=== PATIENT | male | born 1955 | race Native Hawaiian/Other Pacific Islander ===

== ENCOUNTER 2017-01-13 13:57 | Outpatient (CLI) | payer OTHER | END 2017-01-13 15:00 | disposition home or self-care (01) | LOC: EDSEX 13:57 → RESP 13:57 | DX: R06.02 Shortness of breath (principal) | CPT/HCPCS: 94664 ==

== ENCOUNTER 2020-05-26 17:24 | Emergency (ER) | payer OTHER ==
[~2020-05-26] VITALS: Ht 180.3 cm; Wt 77.1 kg
[2020-05-26 17:24] VITALS: TEMP 98.3
[2020-05-26 18:16] LABS: PLATELET COUNT 233 K/uL (142-355)
[2020-05-26 18:50] LABS: POTASSIUM 3.4 mmol/L (3.6-5.2)
[2020-05-26 22:16] VITALS: BP 114/64
== END 2020-05-26 22:17 | disposition still patient (30) ==
LOC: ED 17:24
PROVIDERS: Family Medicine
DX: F10.129 Alcohol abuse with intoxication, unspecified (principal); Y90.8 Blood alcohol level of 240 mg/100 ml or more; S80.01XA Contusion of right knee, initial encounter; S00.03XA Contusion of scalp, initial encounter; S00.83XA Contusion of other part of head, initial encounter; S90.01XA Contusion of right ankle, initial encounter; Z91.81 History of falling; W18.39XA Other fall on same level, initial encounter; Y92.89 Other specified places as the place of occurrence of the external cause
CPT/HCPCS: 80053; 80320; 82150; 83690; 85027; 96360; 99284

== ENCOUNTER 2020-07-30 20:13 | Emergency (ER) | payer OTHER ==
[2020-07-30 20:53] LABS: PLATELET COUNT 202 K/uL (142-355)
[2020-07-30 21:02] LABS: POTASSIUM 4.3 mmol/L (3.6-5.2)
[2020-07-30 21:11] LABS: PARTIAL THROMBOPLASTIN TIME 26.3 SECONDS (24.5-33.6)
[2020-07-30] MEDS ORDERED: FLUOXETINE40 MG PO (22:55)
[2020-07-30] MEDS ORDERED: CLOPIDOGREL75 MG PO (22:56)
[2020-07-30] MEDS ORDERED: LANS30CA PO (22:57)
[2020-07-30] MEDS ORDERED: K-TABS10 MEQ PO (22:58)
[2020-07-30] MEDS ORDERED: MOBIC7.5 M1 PO (22:59)
[2020-07-30] MEDS ORDERED: KP FOLIC ACID1 MG PO (23:00)
[2020-07-30] MEDS ORDERED: THIA100T8 PO (23:00)
[2020-07-30] MEDS ORDERED: TRAZODONE HYDR150 MG PO (23:02)
[2020-07-30] MEDS ORDERED: HYDROCO/APAP1 TA4 PO (23:04)
[2020-07-31 02:05] VITALS: BP 121/71; TEMP 98.7
== END 2020-07-31 02:05 | disposition home or self-care (01) ==
LOC: ED 20:13
PROVIDERS: Emergency Medicine
DX: R53.1 Weakness (principal); F32.89 Other specified depressive episodes; F10.129 Alcohol abuse with intoxication, unspecified; Z03.818 Encounter for observation for suspected exposure to other biological agents ruled out; W18.39XA Other fall on same level, initial encounter; Y92.098 Other place in other non-institutional residence as the place of occurrence of the external cause
CPT/HCPCS: 36415; 80053; 80307; 80320; 80329; 81000; 82150; 82550; 83690; 84484; 85008; 85027; 85610; 85730; 87635; 93005; 96365; 99284; J3411; J3475; J3490; U0003

== ENCOUNTER 2020-09-08 22:11 | Emergency (ER) | payer OTHER ==
[~2020-09-08] VITALS: Ht 182.9 cm; Wt 68.0 kg
[~2020-09-08 22:11] MED LIST: CLOPIDOGREL75 MG PO; FLUOXETINE40 MG PO; HYDROCO/APAP1 TA4 PO; K-TABS10 MEQ PO; KP FOLIC ACID1 MG PO; LANS30CA PO; MOBIC7.5 M1 PO; THIA100T8 PO; TRAZODONE HYDR150 MG PO
[2020-09-08 23:01] LABS: PLATELET COUNT 164 K/uL (142-355)
[2020-09-08 23:14] LABS: POTASSIUM 3.7 mmol/L (3.6-5.2)
[2020-09-08 23:41] LABS: PARTIAL THROMBOPLASTIN TIME 27.1 SECONDS (24.5-33.6)
[2020-09-09 02:40] VITALS: BP 130/82; TEMP 98.6
== END 2020-09-09 02:40 | disposition short-term general hospital (02) ==
LOC: ED 22:11
PROVIDERS: Hospitalist
DX: I21.4 Non-ST elevation (NSTEMI) myocardial infarction (principal); R55 Syncope and collapse; S02.40FA Zygomatic fracture, left side, initial encounter for closed fracture; S02.842A Fracture of lateral orbital wall, left side, initial encounter for closed fracture; S02.40DA Maxillary fracture, left side, initial encounter for closed fracture; Z11.52 Encounter for screening for COVID-19; W18.39XA Other fall on same level, initial encounter; Y93.E1 Activity, personal bathing and showering; Y92.091 Bathroom in other non-institutional residence as the place of occurrence of the external cause
CPT/HCPCS: 36415; 80053; 80320; 82550; 82553; 83880; 84484; 85027; 85610; 85730; 87635; 93005; 96360; 96361; 96365; 96375; 99285; J0696; J2405; U0003

== ENCOUNTER 2020-09-23 14:30 | Inpatient (IN) | payer OTHER ==
[2020-10-04 20:00] VITALS: BP 95/51; TEMP 98.8
[2020-10-05 20:00] VITALS: BP 105/51; TEMP 98.4
[2020-10-06 08:00] VITALS: BP 99/66; TEMP 98.1
[2020-10-06 20:00] VITALS: BP 93/57; TEMP 98.7
[2020-10-07 08:00] VITALS: BP 106/67; TEMP 98.4
== END 2020-10-07 15:50 | disposition home health service (06) | DRG 281 ==
LOC: MED/SURG 14:30
PROVIDERS: ADMIT Internal Medicine; ATTEND Internal Medicine
DX: I21.4 Non-ST elevation (NSTEMI) myocardial infarction (principal); S02.85XD Fracture of orbit, unspecified, subsequent encounter for fracture with routine healing; Z91.81 History of falling; R48.8 Other symbolic dysfunctions; M62.81 Muscle weakness (generalized); Z74.1 Need for assistance with personal care; R26.2 Difficulty in walking, not elsewhere classified; R27.9 Unspecified lack of coordination; N39.0 Urinary tract infection, site not specified; B96.20 Unspecified Escherichia coli [E. coli] as the cause of diseases classified elsewhere; I10 Essential (primary) hypertension; D64.9 Anemia, unspecified; E78.5 Hyperlipidemia, unspecified
CPT/HCPCS: 81000; 87077; 87081; 87086; 87088; 87186; 87635; U0003

== ENCOUNTER 2020-10-28 10:24 | Outpatient (CLI) | payer OTHER ==
[2020-10-28 10:51] LABS: PLATELET COUNT 286 K/uL (142-355)
[2020-10-28 10:59] LABS: POTASSIUM 4.2 mmol/L (3.6-5.2)
== END 2020-10-28 23:31 | disposition home or self-care (01) ==
LOC: LAB 10:24
PROVIDERS: ATTEND Internal Medicine
DX: I25.10 Atherosclerotic heart disease of native coronary artery without angina pectoris (principal); E11.9 Type 2 diabetes mellitus without complications; R30.0 Dysuria; J44.9 Chronic obstructive pulmonary disease, unspecified; E53.8 Deficiency of other specified B group vitamins
CPT/HCPCS: 80053; 81000; 82607; 82746; 84425; 85027

== ENCOUNTER 2020-12-03 15:42 | Outpatient (CLI) | payer OTHER ==
[2020-12-03 16:05] LABS: POTASSIUM 4.3 mmol/L (3.6-5.2)
== END 2020-12-03 22:19 | disposition home or self-care (01) ==
LOC: LAB 15:42
PROVIDERS: ATTEND Internal Medicine Cardiovascular Disease
DX: Z79.899 Other long term (current) drug therapy (principal)
CPT/HCPCS: 80048

== ENCOUNTER 2020-12-08 13:43 | Outpatient (CLI) | payer OTHER | END 2020-12-08 20:42 | disposition home or self-care (01) | LOC: RESP 13:43 | PROVIDERS: ATTEND Internal Medicine Cardiovascular Disease | DX: I10 Essential (primary) hypertension (principal) ==

== ENCOUNTER 2021-01-05 11:56 | Outpatient (CLI) | payer OTHER ==
[2021-01-05 12:09] LABS: PLATELET COUNT 218 K/uL (142-355)
[2021-01-05 12:56] LABS: POTASSIUM 4.3 mmol/L (3.6-5.2)
== END 2021-01-05 19:28 | disposition home or self-care (01) ==
LOC: LAB 11:56
PROVIDERS: ATTEND Nurse Practitioner
DX: E11.9 Type 2 diabetes mellitus without complications (principal); E78.5 Hyperlipidemia, unspecified
CPT/HCPCS: 80053; 83036; 84439; 84443; 85027

== ENCOUNTER 2021-10-28 08:01 | Outpatient (CLI) | payer OTHER ==
[~2021-10-28] VITALS: Ht 182.9 cm; Wt 84.4 kg
== END 2021-10-28 19:39 | disposition home or self-care (01) ==
LOC: NM 08:01
PROVIDERS: ATTEND Internal Medicine Cardiovascular Disease
DX: I20.0 Unstable angina (principal)
CPT/HCPCS: A9500; J2785

== ENCOUNTER 2022-04-20 10:14 | Outpatient (CLI) | payer OTHER | END 2022-04-20 18:59 | disposition home or self-care (01) | LOC: CT 10:14 | PROVIDERS: ATTEND Internal Medicine | DX: R59.0 Localized enlarged lymph nodes (principal); Z85.89 Personal history of malignant neoplasm of other organs and systems; Z08 Encounter for follow-up examination after completed treatment for malignant neoplasm | CPT/HCPCS: 36415; 82565; 84520; Q9963 ==

== ENCOUNTER 2022-06-17 09:54 | Outpatient (CLI) | payer OTHER | END 2022-06-17 19:14 | disposition home or self-care (01) | LOC: CT 09:54 | DX: R22.1 Localized swelling, mass and lump, neck (principal) | CPT/HCPCS: 36415; 82565; 84520; Q9963 ==

== ENCOUNTER 2022-11-09 09:46 | Outpatient (CLI) | payer OTHER | END 2022-11-09 19:06 | disposition home or self-care (01) | LOC: RAD 09:46 | PROVIDERS: ATTEND Otolaryngology | DX: R13.14 Dysphagia, pharyngoesophageal phase (principal) ==